=== PATIENT | male | born 1995 | race Caucasian/White ===

== ENCOUNTER 2017-08-29 17:39 | Emergency (ER) | payer BC ==
[2017-08-29 18:18] LABS: ABS Basophils 0.1 10^3/ul (0-0.2); ABS Eosinophils 0.1 10^3/ul (0-0.6); ABS Lymphocytes 2.5 10^3/ul (1.0-4.8); ABS Monocytes 0.7 10^3/ul (0-0.8); ABS Nucleated RBC 0 10^3/ul; Eosinophil % 0.9 % (0-6); Hematocrit 41 % (42-52); Hemoglobin 14.1 g/dl (14.0-18.0); Lymphocyte % 24.2 % (25-47); Mean Corpuscular HGB Conc 35 g/dl (31-36); Mean Corpuscular Hemoglobin 27 pg (27-31); Mean Corpuscular Volume 77 fL (80-94); Mean Platelet Volume 9 um3 (7.4-10.4); Nucleated Red Blood Cells % 0; Platelet Count 174 10^3/ul (150-450); Red Blood Count 5.34 10^6/ul (4.0-5.4); Red Cell Distribution Width 14 % (10.5-15); White Blood Count 10.4 10^3/ul (3.5-10.8)
[2017-08-29 18:34] LABS: EGFR Non-African American 117.7 (>60)
--- NOTE | 2017-08-29 18:55 | RAD ---
INDICATION: Chest pain COMPARISON: None TECHNIQUE: PA and lateral dual-energy views were obtained. FINDINGS: Bones/Soft Tissues: There are no acute bony findings. Cardiomediastinal: The cardiomediastinal silhouette is normal. Lungs: There are no infiltrates. There is a small left apical pneumothorax Pleura: There are no pleural effusions. Other: None IMPRESSION: Small left apical pneumothorax. Findings called to ED
--- NOTE | 2017-08-29 19:41 | RAD ---
INDICATION: Small left apical pneumothorax COMPARISON: Chest x-ray same date TECHNIQUE: PA and lateral dual-energy views were obtained. FINDINGS: Bones/Soft Tissues: There are no acute bony findings. Cardiomediastinal: The cardiomediastinal silhouette is normal. Lungs: There are no infiltrates. There is a stable small left apical pneumothorax Pleura: There are no pleural effusions. Other: None IMPRESSION: STABLE SMALL LEFT APICAL PNEUMOTHORAX
[2017-08-29 22:54] VITALS: BP 97/54
--- NOTE | 2017-08-30 08:05 | RAD ---
HISTORY: Follow-up pneumothorax COMPARISONS: September 26, 2017 at 6:18 PM on 7:25 PM VIEWS: 1: frontal portable view of the chest at 10:30 PM FINDINGS: LINES AND TUBES: None. CARDIOMEDIASTINAL SILHOUETTE: The cardiomediastinal silhouette is normal for portable technique. PLEURA: There is a stable tiny left apical pneumothorax without change from the 2 most recent previous examinations. LUNG PARENCHYMA: The lungs are clear. ABDOMEN: The upper abdomen is clear. There is no subphrenic gas. BONES AND SOFT TISSUES: No bone or soft tissue abnormalities are noted. IMPRESSION: STABLE SMALL LEFT APICAL PNEUMOTHORAX.
--- NOTE | 2017-08-31 22:45 | ED ---
Ricardo Kimball Jennifer scribed for Taye Rodriguez MD on 08/29/17 at 1830 . HPI Chest Pain - HPI Summary HPI Summary: The patient is a 21 year old male who was brought by EMS from [place] to the ED to rule out pericarditis today. The patient reports that he was taking a shower this morning when he experienced chest pain. He explains that he took Advil, which momentarily relieved his pain, but the pain started again when he was walking to class. The patient complains of trouble breathing, which is worsened by movement. He reports that he was sick last week. The patient denies fever, sweat, chills, pain and swelling in the legs. - History of Current Complaint Chief Complaint: EDDysrhythmPalp Time Seen by Provider: 08/29/17 17:54 Hx Obtained From: Patient Onset/Duration: Started Hours Ago - This morning, Still Present Timing: Constant Initial Severity: Mild Current Severity: Mild Pain Intensity: 0 Pain Scale Used: 0-10 Numeric Chest Pain Location: Mid Sternal Aggravating Factor(s): Movement Alleviating Factor(s): Nothing Associated Signs and Symptoms: Positive: Other: - Trouble breathing. NEGATIVE: fever, sweat, chills, pain and swelling in the legs. - Allergy/Home Medications Allergies/Adverse Reactions: Allergies Allergy/AdvReac Type Severity Reaction Status Date / Time No Known Allergies Allergy Verified 08/29/17 17:52 Home Medications: Home Medications NK [No Home Medications Reported] 08/29/17 [History Confirmed 08/29/17] PMH/Surg Hx/FS Hx/Imm Hx Endocrine/Hematology History: Denies: Hx Diabetes Cardiovascular History: Denies: Hx Hypertension Infectious Disease History: No Infectious Disease History: Denies: Traveled Outside the [place] in Last 30 Days - Family History Known Family History: Positive: Hypertension - Father Negative: Diabetes - Social History Alcohol Use: None Substance Use Type: Reports: None Smoking Status (MU): Never Smoked Tobacco Review of Systems Negative: Fever, Chills, Skin Diaphoresis Negative: Erythema Negative: Sore Throat Positive: Chest Pain Positive: Other - Trouble breathing. Negative: Shortness Of Breath, Cough Negative: Abdominal Pain, Vomiting, Nausea Negative: dysuria, hematuria Negative: Myalgia, Edema Negative: Rash Neurological: Negative - Dizziness All Other Systems Reviewed And Are Negative: Yes Physical Exam - Summary Physical Exam Summary: Constitutional: Well-developed, Well nourished, Alert. (-) Distressed Skin: Warm, Dry HENT: Normocephalic; Atraumatic Eyes: Conjunctiva normal Neck: Musculoskeletal ROM normal neck. (-) JVD, (-) Stridor, (-) Tracheal deviation Cardio: Rhythm regular, rate normal, Heart sounds normal; Intact distal pulses; The pedal pulses are 2+ and symmetric. Radial pulses are 2+ and symmetric. (-) Murmur. No friction rub. Pulmonary/Chest wall: Effort normal. (-) Respiratory distress, (-) Wheezes, (-) Rales. No costochondral tenderness. Abd: Soft, (-) Tenderness, (-) Distension, (-) Guarding, (-) Rebound Musculoskeletal: (-) Edema Lymph: (-) Cervical adenopathy Neuro: Alert, Oriented x3 Psych: Mood and affect Normal Triage Information Reviewed: Yes Vital Signs On Initial Exam: Initial Vitals Temp Pulse Resp BP Pulse Ox 99.2 F 71 18 121/77 100 08/29/17 17:51 08/29/17 17:51 08/29/17 17:51 08/29/17 17:51 08/29/17 17:51 Vital Signs Reviewed: Yes Diagnostics - Vital Signs Vital Signs Temp Pulse Resp BP Pulse Ox 08/29/17 17:51 99.2 F 71 18 121/77 100 - Laboratory Result Diagrams: 08/29/17 18:03 08/29/17 18:03 Lab Statement: Any lab studies that have been ordered have been reviewed, and results considered in the medical decision making process. - Radiology CXR1 Xray Interpretation: Positive (See Comments) - Small left apical pneumothorax. Dr. Rodriguez has reviewed this report. Radiology Interpretation Completed By: Radiologist CXR2 Xray Interpretation: Positive (See Comments) - STABLE SMALL LEFT APICAL PNEUMOTHORAX. Dr. Rodriguez has reviewed this report. Radiology Interpretation Completed By: Radiologist - EKG 18:00 Cardiac Rate: Bradycardia EKG Rhythm: Sinus Bradycardia - [address] Segment: Normal Re-Evaluation - Re-Evaluation First Eval Re-Evaluation Time: 10:25 Change: Improved Comment: Lung sounds were clear and equal. Chest Pain Course/Dx - Course Assessment/Plan: The patient is a 21 year old male who was brought by EMS from [place] to the ED to rule out pericarditis today. The patient reports that he was taking a shower this morning when he experienced chest pain and trouble breathing. EKG and three CXRs were obtained. Wet read of CXR showed stable pneumothorax after four hours. The patient ambulated in the ED and his stats were 100%. I re-evaluated him about 30 minutes ago, and his lung sounds were clear and equal. The patient is diagnosed with Pneumothorax. The patient is instructed to follow up at [facility] tomorrow. He is to return to the emergency department for shortness of breath. - Diagnoses Provider Diagnoses: Pneumothorax Discharge - Discharge Plan Condition: Stable Disposition: HOME Patient Education Materials: Spontaneous Pneumothorax (ED) Referrals: [facility] - Musa ALVARES [Primary Care Provider] - 1 Day Additional Instructions: Follow up with [facility] in tomorrow, 08/30/2017. Return to the emergency department for any new or worsening symptoms. The documentation as recorded by the Ricardo johnson Jennifer accurately reflects the service I personally performed and the decisions made by , Taye Rodriguez MD.
== END 2017-08-29 23:10 | disposition home or self-care (01) ==
LOC: ED 17:39
DX: J93.9 Pneumothorax, unspecified (principal)
CPT/HCPCS: 36415; 71045; 71046; 80053; 83605; 84484; 85025; 85379; 85652; 86140; 93005; 99282